=== PATIENT | male | born 1990 | race Caucasian/White ===

== ENCOUNTER 2016-09-05 19:29 | Emergency (ER) | payer OTHER ==
[2016-09-05] MEDS ORDERED: IBUPROFEN 600 MG TAB PO ONE (19:41)
[2016-09-05] MEDS ORDERED: ACETAMINOPHEN 500 MG 500 MG TAB PO ONE (19:42)
[2016-09-05] MEDS ORDERED: IBUPROFEN 400 MG TAB ONE (20:03)
[2016-09-05] MEDS ORDERED: ACETAMINOPHEN 500 MG 500 MG TAB ONE (20:03)
[2016-09-05 21:07] VITALS: TEMP 99.6
[2016-09-05] MEDS ORDERED: SULFAMETHOXAZOLE/TRIMETHOPRI 800/160 MG PO ONE (22:51)
[2016-09-05] MEDS ORDERED: PREDNISONE 20 MG TAB PO ONE (22:51)
[2016-09-05] MEDS ORDERED: PREDNISONE 20 MG TAB ONE (22:54)
[2016-09-05] MEDS ORDERED: SULFAMETHOXAZOLE/TRIMETHOPRI 800/160 MG ONE (22:55)
[2016-09-05 23:23] VITALS: BP 141/76; PULSE 60; RESP 18; O2SAT 95
== END 2016-09-05 23:14 | DRG 605 ==
LOC: ED 19:29
DX: S80.02XA Contusion of left knee, initial encounter (principal); S09.90XA Unspecified injury of head, initial encounter; S80.01XA Contusion of right knee, initial encounter; V69.40XA Driver of heavy transport vehicle injured in collision with unspecified motor vehicles in traffic accident, initial encounter; M17.12 Unilateral primary osteoarthritis, left knee; S13.4XXA Sprain of ligaments of cervical spine, initial encounter; J32.9 Chronic sinusitis, unspecified
CPT/HCPCS: 72125; 73560; 80307; 99284